=== PATIENT | male | born 1955 | race Caucasian/White ===

== ENCOUNTER 2023-01-07 10:27 | Emergency (ER) | payer MEDICARE ==
[~2023-01-07] VITALS: Ht 175.3 cm; Wt 106.8 kg
[2023-01-07] VITALS (11 sets, daily range): BP systolic 118–136; BP diastolic 72–87
[2023-01-07] MEDS ORDERED: SILVADENE1 % EX (12:15)
== END 2023-01-07 13:02 | disposition home or self-care (01) ==
LOC: ED 10:27
PROC: 2W2TX4Z Dressing of Left Foot using Bandage (ICD-10-PCS; principal; 2023-01-07)
PROC: 2W2QX4Z Dressing of Right Lower Leg using Bandage (ICD-10-PCS; 2023-01-07)
PROC: 2W2RX4Z Dressing of Left Lower Leg using Bandage (ICD-10-PCS; 2023-01-07)
DX: L55.1 Sunburn of second degree (principal); I10 Essential (primary) hypertension; E11.9 Type 2 diabetes mellitus without complications